=== PATIENT | male | born 1960 | race Caucasian/White ===

== ENCOUNTER 2023-10-13 18:10 | Emergency (ER) | payer BC, SELFPAY ==
[2023-10-13 18:18] VITALS: BP 129/73; PULSE 80; RESP 18; TEMP 36.6; O2SAT 97; BMI 31.3
[2023-10-13] MEDS: ONDANSETRON 2 MG/ML inj 4 MG IVP (19:00)
[2023-10-13] MEDS: 0.9 % SODIUM CHLORIDE 1000 ml 1,000 ML IV (19:00)
[2023-10-13 19:02] VITALS: O2SAT 97
[2023-10-13 19:04] LABS: Lactate* 1.5 mmol/L (0.5-1.9)
[2023-10-13 19:07] LABS: Basophils Percent Auto 0.1 % (0.0-3.0); Eosinophils Percent Auto 0.6 % (0.0-7.0); Hematocrit 42.1 % (37.0-53.0); Hemoglobin* 14.4 gm/dL (13.5-17.5); Immature Granulocytes Pct Auto 0.2 %; Lymphocytes Percent Auto 8.3 % (20-44); Mean Corpuscular HGB Conc 34 gm/dL (32-36); Mean Corpuscular Hemoglobin 29 pg (26-34); Mean Corpuscular Volume 84 fL (80-100); Neutrophils Percent Auto 85.8 % (42.0-72.0); Platelet Count* 202 K/uL (140-440); RDW Coefficient of Variation % 12.1 % (11.5-15.5); Red Blood Count 5.02 m/uL (4.30-5.90); White Blood Count* 18.09 K/uL (4.50-11.00)
[2023-10-13 19:08] LABS: Slide Review Reflex No
--- NOTE | 2023-10-13 19:14 | ED.GENADULT ---
HPI - General Adult General Chief complaint: Dizziness/Vertigo Stated complaint: lightheaded, vomiting Time Seen by Provider: 10/13/23 18:24 Source: patient Mode of arrival: ambulatory Limitations: no limitations History of Present Illness HPI narrative: 63-year-old male coming in today complaining of an episode of syncope. Patient states that he had a prostate biopsy earlier this morning. He was at home today and trying to use the toilet tell a bowel movement. He states that he would bear down all the sudden felt very lightheaded. Next thing he knew he woke up on the ground. He denies having headache, he denies neck pain. He states that he just feels ?blah?. He denies any fevers or chills. He denies any shortness of breath or chest pain. He has not been coughing. He states that his pain from the procedures well controlled, has not taken any narcotics today. He states that he has not urinated in approximately 4 hours. He denies abdominal pain. Had a piece of toast prior to procedure this morning. Had a sandwich for lunch, has been drinking plenty of water. Related Data Previous Rx's ?Medication ?Instructions ?Recorded potassium chloride 20 mEq 20 meq PO DAILY #3 tabs 10/13/23 tablet,extended release Allergies Allergy/AdvReac Type Severity Reaction Status Date / Time No Known Drug Allergies Allergy Verified 10/13/23 18:21 Review of Systems Status of ROS: Reports: 10 or more systems reviewed and unremarkable except as noted in History and below [facility] Social History Smoking Status: Never smoker How often do you have a drink containing alcohol: 2-4 times a month How often do you have six or more drinks on one occasion: Never AUDIT-C Alcohol total score: 2 Non-prescribed substance use: denies use Exam Narrative: Exam Narrative: Well-nourished well-developed patient in no acute distress. Alert and oriented. Answers questions appropriately. Mood and affect are appropriate. Thoughts are goal oriented and rational. No tangential or magical thinking noted. Patient speaks in full sentences without needing to catch his breath. Vital signs are normal. Speech is not slurred or pressured. HEENT: Normocephalic atraumatic. No evidence of trauma to the scalp. Pupils are equally round reactive to light. Extraocular muscles are intact. Conjunctivae are moist without any icterus noted. Moist mucous membranes. Posterior pharynx is normal. Neck is soft without any lymphadenopathy or thyromegaly. No masses are appreciated. Cardiovascular: Heart is regular rate and rhythm S1 and S2 are present without any murmurs. Lungs: Clear to auscultation bilaterally no wheezes rhonchi or rales are appreciated. Patient takes deep breaths without any discomfort. Abdomen: Soft and nontender nondistended with normal bowel sounds. No guarding or rebound. No masses or organomegaly appreciated. Extremities: Bilateral lower extremities are without edema. Normal DP and PT pulses. Skin: Well perfused without any obvious rashes. Back: Normal appearance. No tenderness to palpation of the cervical, thoracic or lumbar spine. He has full range of motion of the neck without any pain. I do not see evidence of trauma of the extremities. Const: Vital Signs, click to edit/add: Vital Signs - 24 hr 10/13/23 18:18 10/13/23 19:02 10/13/23 19:41 Temperature 97.8 F Pulse Rate [Right Pulse Oximeter] 80 70 Respiratory Rate 18 Blood Pressure [Ri ght Upper Arm] 129/73 135/73 Pulse Oximetry 97 97 97 Oxygen Delivery Me thod Room Air Room Air Course Course ED Course: EKG, read by me, showed normal sinus rhythm with a pulse of 71. IV is established and patient received a L of normal saline Zofran. Labs are drawn: CBC shows an elevated white cell count 18,000. Sodium and potassium are both low. Remainder of laboratory workup is unremarkable. Patient was able to urinate while he was here without difficulty. There was no blood in his urine. He has no dysuria. Unfortunately, we were not able to get a sample. We discussed patient's laboratory results, patient states that he recently had a physical done which did show low sodium. He states that he does not believe anything was done about that. We did not pursue any imaging today, as patient was not having headache, blurry vision, or any focal neurologic deficits. Vital Signs Vital signs: Initial Vital Signs Temperature 97.8 F 10/13/23 18:18 Temperature Source Temporal Artery Scan 10/13/23 18:18 Pulse Rate 80 10/13/23 18:18 Respiratory Rate 18 10/13/23 18:18 Blood Pressure 129/73 10/13/23 18:18 Blood Pressure Mean 91 10/13/23 18:18 Blood Pressure Position Sitting 10/13/23 18:18 Pulse Oximetry 97 10/13/23 18:18 Oxygen Delivery Method Room Air 10/13/23 18:18 Vital Signs Temperature 97.8 F 10/13/23 18:18 Pulse Rate 80 10/13/23 18:18 Respiratory Rate 18 10/13/23 18:18 Blood Pressure 129/73 10/13/23 18:18 Pulse Oximetry 97 10/13/23 18:18 Oxygen Delivery Method Room Air 10/13/23 18:18 Temperature 97.8 F 10/13/23 18:18 Pulse Rate 70 10/13/23 19:41 Respiratory Rate 18 10/13/23 18:18 Blood Pressure 135/73 10/13/23 19:41 Pulse Oximetry 97 10/13/23 19:41 Oxygen Delivery Method Room Air 10/13/23 19:41 Medications Administered Medications: Discontinued Medications Generic Name Dose Route Start Last Admin Trade Name Freq PRN Reason Stop Dose Admin Sodium Chloride 1,000 mls @ 1,000 mls/hr 10/13/23 18:45 10/13/23 19:00 0.9 % Sodium Chloride 1000 Ml IV 10/13/23 19:44 1,000 mls/hr .Q1H JEN Administration Ondansetron HCl 4 mg 10/13/23 18:33 10/13/23 19:00 Ondansetron 2 Mg/Ml Inj IVP 10/13/23 18:34 4 mg ONCE ONE Administration Potassium Chloride 40 meq 10/13/23 19:20 10/13/23 19:29 Potassium Chloride 10 Meq Capsule Er PO 10/13/23 19:21 40 meq ONCE ONE Administration Medical Decision Making MDM Narrative Medical decision making narrative: 63-year-old male with a syncopal episode after his prostate biopsy while he was using the toilet. Just sound like vasovagal episode. He was monitored here on the monitoring tech without any cardiac arrhythmias or abnormalities. He felt significantly better after Zofran and fluids. He was drinking fluids without difficulty, nausea or vomiting. He has no evidence of infection such as cough, fevers, chills, rashes, urinary symptoms. White cell count elevated, reason unclear. He does state that he took a dose of levofloxacillin before the procedure and he had a dose of IM antibiotic, he is not sure what that was. Again, we were not able to get a urine sample while he was here as the time he urinated was not collected and he was not able to urinate again. He my suspicion for UTI is low at this time given his recent antibiotic use. Patient will be sent home on 20 mEq of potassium daily for the next 3 days. He received a L of normal saline while he was here. I want him to hold his hydrochlorothiazide for the next week and follow up with primary care provider to discuss alternatives, recheck his electrolytes and discuss whether or not he should be back on hydrochlorothiazide. Lab Data Lab results reviewed: Yes I reviewed the patient's lab results Labs: Lab Results 10/13/23 Range/Units 18:50 WBC 18.09 H (4.50-11.00) K/uL RBC 5.02 (4.30-5.90) m/uL Hgb 14.4 (13.5-17.5) gm/dL Hct 42.1 (37.0-53.0) % MCV 84 (80-100) fL MCH 29 (26-34) pg MCHC 34 (32-36) gm/dL RDW Coeff of Philippe 12.1 (11.5-15.5) % Plt Count 202 (140-440) K/uL Neut % (Auto) 85.8 H (42.0-72.0) % Lymph % (Auto) 8.3 L (20-44) % [place] % (Auto) 5.0 (0.0-11.0) % Eos % (Auto) 0.6 (0.0-7.0) % Baso % (Auto) 0.1 (0.0-3.0) % Neut # (Auto) 15.50 H (1.7-7.0) K/uL Lymph # (Auto) 1.50 (0.90-2.90) K/uL [place] # (Auto) 0.90 (0.00-0.90) K/UL Eos # (Auto) 0.10 (0.00-0.50) K/uL Baso # (Auto) 0.00 (0.00-0.30) K/uL Abs Immat Gran (auto) 0.00 (0.00-0.30) K/uL Imm/Tot Granulo (auto) 0.2 % Sodium 133 L (135-149) mmol/L Potassium 3.0 L (3.6-5.1) mmol/L Chloride 99 (96-114) mmol/L Carbon Dioxide 26 (20-32) mmol/L Anion Gap 8 (7-15) mEq/L BUN 21 (7-30) mg/dL Creatinine 0.8 (0.5-1.5) mg/dL Estimated Creat Clear 69.77 Estimated GFR 99 ml/min Glucose 121 H (60-115) mg/dL Lactate 1.5 (0.5-1.9) mmol/L Calcium 9.2 (8.4-10.6) mg/dL Total Bilirubin 1.3 (0.1-1.5) mg/dL Direct Bilirubin 0.3 (0.0-0.5) mg/dL AST 40 H (12-35) U/L ALT 25 (4-50) U/L Alkaline Phosphatase 60 (40-150) U/L Total Protein 7.5 (6.0-8.3) g/dL Albumin 4.5 (3.3-5.0) g/dL ECG Data Attestation: I personally reviewed and interpreted this ECG as follows: Discharge Plan Discharge Clinical Impression: Syncope, vasovagal Patient Disposition: Home, Self-Care Condition: Improved Additional Instructions: Your sodium potassium levels were low. However, I do not think that this caused your fainting episode. Hold your hydrochlorothiazide as this can worsen low sodium and potassium. Take potassium for next three days as prescribed. You received sodium through your IV today. You need to follow-up with your primary care provider next week to repeat sodium and potassium levels and discuss whether not to restart hydrochlorothiazide. If you feel worse, develop fevers or chills, vomiting starts again, I do recommend you return to the ER. Prescriptions: New potassium chloride 20 mEq tablet extended release 20 meq PO DAILY Qty: 3 0RF Follow Up/Referrals: Provider,Not a Local [Primary Care Provider] - Stand Alone Forms: [employer] Info Instructions
[2023-10-13 19:16] LABS: Albumin* 4.5 g/dL (3.3-5.0); Chloride* 99 mmol/L (96-114); Sodium* 133 mmol/L (135-149)
[2023-10-13 19:18] LABS: Creatinine* 0.8 mg/dL (0.5-1.5); Est. Creatinine Clearance* 69.77; Estimated Glomerular Filt Rate 99 ml/min
[2023-10-13 19:19] LABS: Alanine Aminotransferase* 25 U/L (4-50); Alkaline Phosphatase* 60 U/L (40-150); Anion Gap 8 mEq/L (7-15); Aspartate Amino Transferase* 40 U/L (12-35); Bilirubin Direct* 0.3 mg/dL (0.0-0.5); Bilirubin Total* 1.3 mg/dL (0.1-1.5); Blood Urea Nitrogen* 21 mg/dL (7-30); Carbon Dioxide* 26 mmol/L (20-32); Glucose* 121 mg/dL (60-115); Total Protein* 7.5 g/dL (6.0-8.3)
[2023-10-13 19:20] LABS: Calcium* 9.2 mg/dL (8.4-10.6)
[2023-10-13] MEDS: POTASSIUM CHLORIDE 10 MEQ CAPSULE ER 40 MEQ PO (19:29)
[2023-10-13 19:41] VITALS: BP 135/73; PULSE 70; O2SAT 97
== END 2023-10-13 20:23 | disposition home or self-care (01) ==
PROVIDERS: Emergency Provider Family Medicine
DX: R55 Syncope and collapse (principal)
CPT/HCPCS: 36415; 80048; 80076; 81001; 83605; 85025; 93005; 94761; 96361; 96374; 99284; A9270; J2405; J7030